=== PATIENT | female | born 1995 | race Caucasian/White ===

== ENCOUNTER 2016-08-09 02:29 | Outpatient (CLI) | payer BC ==
[2016-08-09 02:44] VITALS: BP 129/81; PULSE 87; RESP 18; TEMP 96.9
== END 2016-08-09 04:45 | disposition home or self-care (01) ==
LOC: FBPOP 02:29
PROVIDERS: ATTEND Obstetrics & Gynecology
DX: O47.1 False labor at or after 37 completed weeks of gestation (principal); Z3A.41 41 weeks gestation of pregnancy
CPT/HCPCS: 59025; 99213

== ENCOUNTER 2016-08-09 11:25 | Inpatient (IN) | payer BC, OTHER ==
[2016-08-09] MEDS ORDERED: METHYLERGONOVINE 0.2 MG/ML 1 ML AMP IM PRN (11:29)
[2016-08-09] MEDS ORDERED: LIDOCAINE 1% (PF) 10 MG/ML (30 ML SDV) SQ PRN (11:29)
[2016-08-09] MEDS ORDERED: CARBOPROST TROMETHAMINE 250 MCG/ML 1 ML AMP IM PRN (11:29)
[2016-08-09] MEDS ORDERED: OXYTOCIN 10 UNIT/ML 1 ML VIAL IM PRN (11:29)
[2016-08-09] MEDS ORDERED: TERBUTALINE 1 MG/ML VIAL SQ PRN (11:29)
[2016-08-09] MEDS ORDERED: OXYTOCIN 20 UNITS/1000 ML NS 1,000 ML IV SCH ×2 (11:30→20:30)
[2016-08-09 11:45] VITALS: BMI 30.8
[2016-08-09] MEDS ORDERED: PENICILLIN G POTASSIUM 5,000,000 UNIT in DEXTROSE 5% IN WATER 100 ML IV STA ×2 (11:49)
[2016-08-09] MEDS: LACTATED RINGERS 1,000 ML IV SCH ×4 (12:19→23:14)
[2016-08-09 12:26] LABS: Anisocytosis Slight; Basophils % (A) 0 %; CH 19.2; CHCM 28.4; Eosinophils % (A) 0 %; HCT 31.4 % (34.0-46.0); HGB 8.9 gm/dL (11.4-16.0); Hypochromasia Marked; Luc # (Auto) 0.19; Luc % (Auto) 2; Lymphocytes # (A) 1.6 k/uL (1.0-4.8); Lymphocytes % (A) 14 %; MCH 19.3 pg (25.0-35.0); MCHC 28.4 g/dL (31.0-37.0); Mean Platelet Volume 8.3; Microcytosis Marked; Monocytes # (A) 0.5 k/uL (0-1.0); Monocytes % (A) 4 %; Neutrophils % (A) 79 %; Poikilocytosis Slight; RBC 4.62 m/uL (3.80-5.40); RDW 17.9 % (11.5-15.5); WBC 11.4 k/uL (4.0-11.0); WBC (Perox) 11.23
[2016-08-09] MEDS ORDERED: fentaNYL (PF) 50 MCG/ML 5 ML AMP ONE ×2 (12:30→19:21)
[2016-08-09] MEDS ORDERED: BUPIVACAINE (PF) 0.25% 30 ML VIAL ONE ×2 (12:30→19:21)
[2016-08-09] MEDS ORDERED: SODIUM CHLORIDE 0.9% 100 ML BAG ONE ×2 (12:30→19:21)
[2016-08-09] MEDS ORDERED: BUPIVACAINE (PF) 0.25% 25 ML, fentaNYL (PF) 200 MCG in SODIUM CHLORIDE 0.9% 71 ML EPIDURAL ONE (13:00)
--- NOTE | 2016-08-09 13:04 | P.HPOB ---
History of Present Illness H&P Date: 08/09/16 Chief Complaint: 41-4/7 weeks, early labor The patient is a 20-year-old 1 para 0 admitted at 41-4/7 weeks as established by last menstrual period and confirmed by second trimester ultrasound. She is admitted in early active labor with all signs reassuring. She initially presented to triage last night with her cervix being found to be approximately 1+ centimeters dilated and was discharged home. She followed up again this morning in triage where she was found to be 3+ meters dilated and bobby regularly. Her has been essentially uncomplicated and she is group B strep positive. Obstetrical history: 1 para 0 with current statistics listed in history of present illness. EDC of 07/29/2016 was established by last menstrual period and confirmed by second trimester ultrasound. Laboratory workup demonstrates a blood type of O+ with a negative antibody screen. Rubella status is immune. The remainder of her laboratory workup was within normal limits. One hour Glucola was normal and group B strep status is positive. She did have fairly significant third trimester anemia for which she was being treated with iron sulfate. Gynecologic history: Unremarkable with no history of any infections to include STDs though she was treated for mycoplasma and Ureaplasma during this . Review of Systems Review of systems is confined to history of present illness. Past Medical History Past Medical History: No Reported History History of Any Multi-Drug Resistant Organisms: None Reported Past Surgical History: No Surgical Hx Reported Past Anesthesia/Blood Transfusion Reactions: No Reported Reaction Past Psychological History: No Psychological Hx Reported Smoking Status: Never smoker Past Drug Use History: None Reported - Past Family History Mother Family Medical History: No Reported History Medications and Allergies Home Medications Medication Instructions Recorded Confirmed Type Pnv,Calcium 72/Iron/Folic Acid 1 tab PO DAILY 08/09/16 08/09/16 History [ Plus Tablet] Allergies Allergy/AdvReac Type Severity Reaction Status Date / Time No Known Allergies Allergy Verified 08/09/16 02:35 Exam - Vital Signs Vital signs: Vital Signs Temp Pulse Resp BP 08/09/16 11:34 97.9 F 105 H 16 133/81 Intake and Output 08/08/16 08/09/16 08/09/16 22:59 06:59 14:59 Other: Weight 73.936 kg Patient Weight 08/10/16 06:59 Weight 73.936 kg In general, this is a well-developed, well-nourished white female in no acute distress as she has just had an epidural catheter placed. Her heart has a regular rhythm and rate without murmur though she is occasionally tachycardic. Her lungs are clear to auscultation bilaterally in all kraus. Her abdomen is gravid, nondistended, has normal active bowel sounds, is soft, nontender, and without any palpable masses aside from uterine fundus. Her extremities are without any cyanosis, clubbing, or edema and are nontender to palpation bilaterally. Digital cervical examination on straights her cervix to be 4 cm dilated, 80% effaced, the vertex in presentation at -2 station. Artificial rupture of membranes is carried out demonstrating clear fluid. Results Result Diagrams: 08/09/16 11:57 Abnormal Lab Results - Last 24 Hours (Table) 08/09/16 Range/Units 11:57 WBC 11.4 H (4.0-11.0) k/uL Hgb 8.9 L (11.4-16.0) gm/dL Hct 31.4 L (34.0-46.0) % MCV 68.0 L (80.0-100.0) fL MCH 19.3 L (25.0-35.0) pg MCHC 28.4 L (31.0-37.0) g/dL RDW 17.9 H (11.5-15.5) % Plt Count 136 L (150-450) k/uL Neutrophils # 9.0 H (1.3-7.7) k/uL Assessment and Plan (1) Group B streptococcal infection in Status: Acute (2) Post-dates Status: Acute (3) Active labor at term Status: Acute Plan: The patient has been admitted for active management of labor. Penicillin prophylaxis for group B strep has been started. She is bobby well on her own at this time and has undergone artificial rupture of membranes. She will have close maternal and surveillance and expectant management will be practiced. An epidural catheter has been placed for analgesia.
[2016-08-09] MEDS: PENICILLIN G POTASSIUM 2,500,000 UNIT in DEXTROSE 5% IN WATER 100 ML IV SCH ×4 (16:21→21:26)
[2016-08-09] MEDS ORDERED: CITRIC ACID-SODIUM CITRATE 15 ML CUP PO ONE (19:13)
[2016-08-09] MEDS ORDERED: ceFAZolin 2 GM in SODIUM CHLORIDE 0.9% 100 ML IVPB ONE (19:13)
[2016-08-09] MEDS ORDERED: SUCCINYLCHOLINE CHLORIDE 100 MG/5 ML SYR IV ONE (19:21)
[2016-08-09] MEDS ORDERED: ONDANSETRON 4 MG/2 ML VIAL ONE (19:21)
[2016-08-09] MEDS ORDERED: PROPOFOL 10 MG/ML 20 ML VIAL IV ONE (19:21)
[2016-08-09] MEDS ORDERED: OXYTOCIN 10 UNIT/ML 1 ML VIAL ONE (19:21)
[2016-08-09] MEDS ORDERED: KETOROLAC 30 MG/ML 1 ML VIAL ONE (19:21)
[2016-08-09] MEDS ORDERED: diphenhydrAMINE 50 MG CAP PO PRN (20:22)
[2016-08-09] MEDS ORDERED: ONDANSETRON 4 MG/2 ML VIAL IVP PRN (20:22)
[2016-08-09] MEDS ORDERED: diphenhydrAMINE 25 MG CAP PO PRN (20:22)
[2016-08-09] MEDS ORDERED: METOCLOPRAMIDE 5 MG/ML 2 ML VIAL IVP PRN (20:22)
[2016-08-09] MEDS ORDERED: LANOLIN CREAM 5 GM TUBE TOPICAL PRN (20:22)
[2016-08-09] MEDS ORDERED: Acetaminophen-Codeine 300-30mg TAB PO PRN (20:22)
[2016-08-09] MEDS ORDERED: NALOXONE 0.4 MG/ML 1 ML VIAL IV PRN (20:22)
[2016-08-09] MEDS ORDERED: ACETAMINOPHEN TAB 325 MG TAB PO PRN (20:22)
[2016-08-09] MEDS ORDERED: ZOLPIDEM 5 MG TAB PO PRN (20:22)
[2016-08-09] MEDS ORDERED: diphenhydrAMINE 50 MG/ML 1 ML VIAL IVP PRN ×2 (20:22)
--- NOTE | 2016-08-09 20:32 | P.OP ---
Date of Procedure: 08/09/16 Preoperative Diagnosis: #1. 41-4/7 weeks intrauterine , labor #2. Group B strep colonization #3. Arrest of dilation and descent Postoperative Diagnosis: Same plus #4. Right occiput posterior Procedure(s) Performed: #1. Primary low-transverse section Implants: Anesthesia: KAMAR Surgeon: Laureano Alarcon Supervisor Reclamation #1: Ralph Summers Estimated Blood Loss (ml): 600 IV fluids (ml): 1,400 Urine output (ml): 400 Pathology: other (Placenta) Condition: stable Disposition: floor Indications for Procedure: Operative Findings: Preoperatively, the patient had progressed to approximately 8 cm but began to have no relief from her epidural catheter despite boluses. Over the course of the and our to her cervix began to swell and actually regressed to 7 cm of dilation with the head still at a high station. She additionally was having some variable decelerations, occasionally prolonged. Given these findings, decision was made to proceed to the operating room. In the operating room she had her epidural removed and a spinal placed which failed to develop adequate anesthesia. As results the patient received general endotracheal anesthesia. She was delivered of a viable 7 lbs. 14 oz. baby girl with Apgars of 9 at 1 minute and 9 at 5 minutes delivered in the right occiput posterior position. The placenta was delivered manually, intact, and grossly normal with a grossly normal three-vessel cord. The uterus, tubes, and ovaries were entirely normal to inspection. Description of Procedure: The patient was prepped and draped in usual fashion after spinal anesthesia was administered by the anesthesiologist. After waiting approximately 5-10 minutes for levels to develop, it was apparent that the spinal medication had not taken effect. As result, general endotracheal anesthesia was placed. Once the endotracheal tube was in place, a Pfannenstiel incision was made and extended into the abdominal cavity without difficulty. The bladder peritoneum was distal to the site of the incision. As result, a 2 cm incision was made in the transverse plane of the lower uterine segment to enter the uterus at which time further clear fluid was noted. The incision was extended in both directions using the bandage scissors. The head was encountered in the pelvis and lifted up and through the incision in the right occiput posterior position. The nose and mouth were thoroughly suctioned and a nuchal cord was reduced. The remainder of the infant was delivered onto the field where the cord was doubly clamped, cut, and the infant passed for resuscitative measures with weight and Apgars as noted above. A segment of cord was doubly clamped, cut, and set aside should cord gases become necessary. The placenta was delivered manually and intact as noted above. The uterus was exteriorized and the interior cavity swept of any remaining placental or membranous fragments. The margins of the incision were grasped with Caldear clamps and the incision was closed in 2 layers. The first layer was a running locking stitch of 0 chromic catgut followed by a running imbricating stitch of 0 chromic catgut. Any small points of bleeding were made hemostatic with the Bovie. There was some ongoing bleeding near the right angle of the incision was made hemostatic with 2 [id number] stitches of 0 chromic catgut. The posterior cul-de-sac was suctioned using a guard and the uterine and ovarian findings were normal as noted above. The uterus was replaced within the abdominal cavity and the gutters were swept of any remaining blood, fluid, or clot. The incision was reexamined at which time the area at the right angle of the incision was noted and made hemostatic with the [id number] stitches. Any further small points of bleeding were made hemostatic with the Bovie. Once hemostasis was adequate, the parietal peritoneum was loosely reapproximated and layer of muscles examined and found to be hemostatic. The fascia was closed with 2 running stitches of 0 Vicryl proceeding from lateral margins to the midpoint. The subcutaneous tissues were irrigated, made hemostatic with the Bovie, and reapproximated with a running stitch of 30 plain catgut. The skin was reapproximated with a running subcuticular stitch of 4-0 Vicryl followed by half -inch Steri-Strips placed with Mastisol. Estimated blood loss for the case is approximately 600 mL. There were no complications. All sponge, instrument, and needle counts were correct. The patient tolerated the procedure well and proceeded to the recovery room in stable condition. Both mother and are resting comfortably in recovery.
[2016-08-10] MEDS: KETOROLAC 30 MG/ML 1 ML VIAL IVP PRN ×3 (02:34→18:07)
--- NOTE | 2016-08-10 05:56 | P.PNOBGPC ---
Subjective - Subjective Patient reports: Reports appetite normal, Reports voiding normally, Reports pain well controlled, Reports ambulating normally : doing well Objective - Vital Signs Latest vital signs: Vital Signs Temp Pulse Resp BP Pulse Ox 08/10/16 04:00 98.8 F 108 H 18 114/68 99 08/10/16 00:00 99.0 F 109 H 18 120/61 98 08/09/16 22:35 98.1 F 119 H 16 107/55 99 08/09/16 22:05 97.7 F 109 H 16 135/59 99 08/09/16 21:35 126 H 16 119/70 100 08/09/16 21:20 126 H 16 128/69 98 08/09/16 21:05 97.7 F 122 H 16 128/70 99 08/09/16 20:50 97.7 F 118 H 16 115/59 100 08/09/16 20:35 96.7 F L 129 H 16 118/73 99 08/09/16 11:34 97.9 F 105 H 16 133/81 Intake and Output 08/09/16 08/09/16 08/10/16 14:59 22:59 06:59 Intake Total 2000 2600 Output Total 1800 1800 Balance 2000 800 -1800 Intake: IV 2000 2000 Lactated Ringers 1,000 ml 2000 @ 125 mls/hr IV .Q8H [facility] Rx#:[id number] Oral 600 Output: Urine 600 1800 Uretheral (Ashley) 900 Estimated Blood Loss 1200 Other: Weight 73.936 kg Patient Weight 08/10/16 06:59 Weight 73.936 kg - Exam Lungs: bilateral: normal Chest: Normal S1, Normal S2 Extremities: Present: normal Abdomen: Present: normal appearance, soft. Absent: distention, tenderness Incision: Present: normal, dry, intact Uterus: Present: normal, firm (The uterine fundus as tonic and nontender just below the umbilicus.) - Labs Labs: Abnormal Lab Results - Last 24 Hours (Table) 08/09/16 Range/Units 11:57 WBC 11.4 H (4.0-11.0) k/uL Hgb 8.9 L (11.4-16.0) gm/dL Hct 31.4 L (34.0-46.0) % MCV 68.0 L (80.0-100.0) fL MCH 19.3 L (25.0-35.0) pg MCHC 28.4 L (31.0-37.0) g/dL RDW 17.9 H (11.5-15.5) % Plt Count 136 L (150-450) k/uL Neutrophils # 9.0 H (1.3-7.7) k/uL Assessment and Plan (1) Group B streptococcal infection in Current Visit: Yes Status: Acute Code(s): O98.819 - OTH MATERNAL INFEC/ PARASTC DISEASES COMP PREG, UNSP TRI; B95.1 - STREPTOCOCCUS, GROUP B, CAUSING DISEASES CLASSD ELSR SNOMED Code(s): 954638013 (2) Post-dates Current Visit: Yes Status: Acute Code(s): O48.0 - POST-TERM SNOMED Code(s): 61991889 (3) Active labor at term Current Visit: Yes Status: Acute Code(s): ZFI4905 - SNOMED Code(s): 34500118 (4) S/P section Narrative/Plan: Continue routine postoperative care. Her diet will be advanced this morning. CBC at this time is pending. I have encouraged her to ambulate in the halls at least 4 times daily. I would anticipate possible discharge home tomorrow pending no complications. Current Visit: Yes Status: Acute Code(s): Z98.891 - HISTORY OF UTERINE SCAR FROM PREVIOUS SURGERY SNOMED Code(s): 229170786
[2016-08-10 08:12] LABS: Anisocytosis Slight; Basophils % (A) 0 %; CHCM 27.9; Eosinophils % (A) 0 %; HDW 3.76; Hypochromasia Marked; Luc # (Auto) 0.13; Luc % (Auto) 1; Lymphocytes # (A) 0.8 k/uL (1.0-4.8); Lymphocytes % (A) 8 %; MCH 19.3 pg (25.0-35.0); MCHC 28.2 g/dL (31.0-37.0); MCV 68.5 fL (80.0-100.0); Mean Platelet Volume 8.4; Microcytosis Marked; Monocytes # (A) 0.4 k/uL (0-1.0); Monocytes % (A) 4 %; Neutrophils # (A) 8.8 k/uL (1.3-7.7); Neutrophils % (A) 87 %; Poikilocytosis Slight; RBC 3.22 m/uL (3.80-5.40); WBC 10.1 k/uL (4.0-11.0); WBC (Perox) 10.04
[2016-08-10 08:18] LABS: HGB 6.2 gm/dL (11.4-16.0)
[2016-08-10] MEDS: LACTATED RINGERS 1,000 ML IV SCH ×3 (09:21→21:10)
[2016-08-10] MEDS: SENNOSIDES-DOCUSATE SODIUM 1 EACH TAB PO SCH ×2 (10:29→19:48)
--- NOTE | 2016-08-10 12:28 | P.PN ---
Progress Note - Text 0700 Anesthesia POD 1. Patient is status post section under under spinal anesthesia converted to general endotracheal anesthesia due to inadequate block with intra-thecal preservative free morphine 300 g. Moderate pruritus, good post-op analgesia, and ache or other complication. The patient had an epidural catheter in place which had been functioning well earlier in the day but was equivocal at the time that the decision was made to take her to the operating room. For this reason it was decided to remove the catheter and give the patient a spinal anesthetic. The spinal anesthetic was administered by the RADIO HOST with what appeared to be an appropriate dose of Marcaine 0.75% with preservative free morphine 300 g. The patient continued to feel her contractions was able to bend her knees and wiggle her toes and exhibited virtually no drop in blood pressure. For this reason it was decided to proceed with a general endotracheal anesthetic for the section which went smoothly without incident. It's unclear why the patient didn't develop a adequate spinal anesthetic in light of the fact that she experienced significant pruritus, only required 1 dose of Toradol 30 mg postoperatively and was still quite comfortable during rounds this morning. This would seem to indicate that she received a full dose of preservative-free morphine intrathecally which would have to include the full dose of Marcaine.
[2016-08-11] MEDS: KETOROLAC 30 MG/ML 1 ML VIAL IVP PRN (02:28)
[2016-08-11 06:08] LABS: Anisocytosis Slight; Basophils % (A) 0 %; CH 18.9; CHCM 27.1; Eosinophils # (A) 0.1 k/uL (0-0.7); Eosinophils % (A) 1 %; HCT 22.2 % (34.0-46.0); HDW 3.66; Hypochromasia Marked; Luc # (Auto) 0.13; Luc % (Auto) 1; Lymphocytes % (A) 10 %; MCH 19.1 pg (25.0-35.0); MCHC 27.2 g/dL (31.0-37.0); MCV 70.3 fL (80.0-100.0); Mean Platelet Volume 8.2; Microcytosis Marked; Monocytes # (A) 0.4 k/uL (0-1.0); Monocytes % (A) 4 %; Neutrophils # (A) 8.4 k/uL (1.3-7.7); Neutrophils % (A) 84 %; Poikilocytosis Slight; RBC 3.16 m/uL (3.80-5.40); RDW 18.1 % (11.5-15.5); WBC (Perox) 10.43
[2016-08-11 06:11] LABS: HGB 6.1 gm/dL (11.4-16.0)
[2016-08-11] MEDS: SENNOSIDES-DOCUSATE SODIUM 1 EACH TAB PO SCH ×2 (08:12→22:29)
[2016-08-11] MEDS: Acetaminophen-Codeine 300-30mg TAB PO PRN ×4 (08:12→22:39)
--- NOTE | 2016-08-11 08:42 | P.PNOBGPC ---
Subjective - Subjective Interval history: The patient denies any signs or symptoms of orthostasis. She has no issue when up and ambulating without dizziness or any other concerns as regards her degree of anemia. Vaginal bleeding is minimal at this point. Patient reports: Reports appetite normal, Reports voiding normally, Reports pain well controlled, Reports ambulating normally [place]: doing well Objective - Vital Signs Latest vital signs: Vital Signs Temp Pulse Resp BP Pulse Ox 08/11/16 00:00 98.7 F 123 H 18 112/68 08/10/16 20:00 98.2 F 102 H 18 109/52 08/10/16 16:00 98.1 F 105 H 18 112/66 97 08/10/16 12:00 98.2 F 118 H 18 127/57 98 Intake and Output 08/10/16 08/11/16 08/11/16 22:59 06:59 14:59 Intake Total 500 Balance 500 Intake: Oral 500 Other: # Voids 2 1 - Exam Extremities: Present: normal Abdomen: Present: normal appearance, soft. Absent: distention, tenderness Incision: Present: normal, dry, intact Uterus: Present: normal, firm (The uterine fundus systolic and nontender below the umbilicus) - Labs Labs: Abnormal Lab Results - Last 24 Hours (Table) 08/11/16 Range/Units 04:51 RBC 3.16 L (3.80-5.40) m/uL Hgb 6.1 L* (11.4-16.0) gm/dL Hct 22.2 L (34.0-46.0) % MCV 70.3 L (80.0-100.0) fL MCH 19.1 L (25.0-35.0) pg MCHC 27.2 L (31.0-37.0) g/dL RDW 18.1 H (11.5-15.5) % Plt Count 132 L (150-450) k/uL Neutrophils # 8.4 H (1.3-7.7) k/uL Assessment and Plan (1) Group B streptococcal infection in Current Visit: Yes Status: Acute Code(s): O98.819 - OTH MATERNAL INFEC/ PARASTC DISEASES COMP PREG, UNSP TRI; B95.1 - STREPTOCOCCUS, GROUP B, [facility] Code(s): 830387391 (2) Post-dates Current Visit: Yes Status: Acute Code(s): O48.0 - POST-TERM SNOMED Code(s): 84488979 (3) Active labor at term Current Visit: Yes Status: Acute Code(s): ZUX9080 - SNOMED Code(s): 31422029 (4) S/P section Narrative/Plan: There are no signs or symptoms of orthostasis. As result I will not opt for transfusion at this time and instead have her start aggressive iron supplementation as an outpatient. She has requested one more day in the hospital to which I have agreed. I strongly encouraged her to ambulate in the halls routinely. We will continue to monitor vital signs closely. I anticipate discharge home tomorrow. Current Visit: Yes Status: Acute Code(s): Z98.891 - HISTORY OF UTERINE SCAR FROM PREVIOUS SURGERY SNOMED Code(s): 962488827
[2016-08-11] MEDS: IBUPROFEN 600 MG TAB PO PRN (11:24)
[2016-08-11] MEDS: SIMETHICONE 80 MG CHEWABLE PO PRN (19:01)
[2016-08-12] MEDS: Acetaminophen-Codeine 300-30mg TAB PO PRN ×4 (03:30→19:29)
[2016-08-12] MEDS: SIMETHICONE 80 MG CHEWABLE PO PRN ×3 (03:33→22:13)
[2016-08-12] MEDS: SENNOSIDES-DOCUSATE SODIUM 1 EACH TAB PO SCH ×2 (08:06→19:29)
--- NOTE | 2016-08-12 08:34 | P.PNOBGPC ---
Subjective - Subjective Interval history: The patient is requesting one more day in the hospital. She does report 1 episode of dizziness when up this morning. She additionally reported that she had significant nausea while in the shower yesterday. She is having some difficulty passing flatus at this time as well. Patient reports: Reports appetite normal, Reports voiding normally, Reports pain well controlled, Reports ambulating normally : doing well Objective - Vital Signs Latest vital signs: Vital Signs Temp Pulse Resp BP Pulse Ox 08/11/16 22:29 98.1 F 99 15 109/75 08/11/16 16:00 98.9 F 111 H 16 135/69 96 08/11/16 08:39 97.9 F 106 H 18 124/75 Intake and Output 08/11/16 08/12/16 08/12/16 22:59 06:59 14:59 Output Total 100 Balance -100 Output: Emesis 100 - Exam Extremities: Present: normal Abdomen: Present: normal appearance, soft. Absent: distention, tenderness Incision: Present: normal, dry, intact Uterus: Present: normal, firm (The uterine fundus as tonic and nontender below the umbilicus.) Assessment and Plan (1) Group B streptococcal infection in Current Visit: Yes Status: Acute Code(s): O98.819 - OTH MATERNAL INFEC/ PARASTC DISEASES COMP PREG, UNSP TRI; B95.1 - STREPTOCOCCUS, GROUP B, CAUSING DISEASES CLASSD ELSR SNOMED Code(s): 329983654 (2) Post-dates Current Visit: Yes Status: Acute Code(s): O48.0 - POST-TERM SNOMED Code(s): 55711447 (3) Active labor at term Current Visit: Yes Status: Acute Code(s): GUG2175 - SNOMED Code(s): 36788973 (4) S/P section Narrative/Plan: I will recheck a CBC this morning if it is any lower than previously documented , she will likely have 2 units of packed red blood cells. I have discussed with her that she will need to be discharged tomorrow unless and unforeseen complication is noted. I have strongly encouraged her to ambulate in the halls routinely. She is otherwise tolerating regular diet and performing all activities of daily living. Current Visit: Yes Status: Acute Code(s): Z98.891 - HISTORY OF UTERINE SCAR FROM PREVIOUS SURGERY SNOMED Code(s): 486392161
[2016-08-12 09:23] LABS: Anisocytosis Slight; CH 18.8; CHCM 26.9; HCT 22.8 % (34.0-46.0); HDW 3.56; Hypochromasia Marked; MCH 20.2 pg (25.0-35.0); MCHC 28.7 g/dL (31.0-37.0); MCV 70.4 fL (80.0-100.0); Mean Platelet Volume 9.7; Microcytosis Marked; Poikilocytosis Slight; RBC 3.24 m/uL (3.80-5.40); RDW 17.6 % (11.5-15.5); WBC 8.7 k/uL (4.0-11.0)
[2016-08-12 09:45] LABS: HGB 6.5 gm/dL (11.4-16.0)
[2016-08-12] MEDS: IBUPROFEN 600 MG TAB PO PRN (22:00)
[2016-08-13] MEDS: Acetaminophen-Codeine 300-30mg TAB PO PRN ×2 (00:02→05:44)
[2016-08-13 00:08] VITALS: RESP 16
[2016-08-13] MEDS: IBUPROFEN 600 MG TAB PO PRN (07:40)
[2016-08-13] MEDS: SENNOSIDES-DOCUSATE SODIUM 1 EACH TAB PO SCH (07:41)
[2016-08-13 07:46] VITALS: BP 114/58; PULSE 102; TEMP 98.5
--- NOTE | 2016-08-13 11:06 | P.DS ---
Providers Date of admission: 08/09/16 11:25 Expected date of discharge: 08/13/16 Attending physician: Laureano Alarcon Primary care physician: Stated None - Discharge Diagnosis(es) (1) Group B streptococcal infection in Current Visit: Yes Status: Acute (2) Post-dates Current Visit: Yes Status: Acute (3) Active labor at term Current Visit: Yes Status: Acute (4) S/P section Current Visit: Yes Status: Acute Hospital Course: The patient is a 20-year-old 1 para 0 admitted at 41-4/7 weeks by good dating parameters. She is admitted in early active labor with all signs reassuring. Her has been uncomplicated and group B strep status is positive. As result, she had antibiotic prophylaxis started and an epidural catheter was placed for analgesia. She began to make some progress and underwent artificial rupture of membranes of clear fluid. She had Pitocin augmentation started. She made progress to approximately 8 cm and then arrested further dilation. She actually began has some cervical swelling and regressed to 7 cm at which time the decision was made to proceed with section. She was taken the operating room for primary low-transverse section at which time she was delivered of a viable 7 lbs. 14 oz. baby girl with Apgars of 9 at 1 minute and 9 at 5 minutes. Her postoperative course was unremarkable vital signs remaining stable and her temperature was afebrile throughout. She opted to remain in the hospital until postoperative day #4 at which time she was discharged home to follow-up in the office in 2 weeks for an incision check and 6 weeks routinely. She was significantly anemic both prior to surgery and then, subsequently after her surgery. Her hemoglobin nadired at 6.1 and, at the time of discharge, was 6.5. Despite her low count, she remained asymptomatic throughout her stay and transfusion was not entertained. She was discharged home to follow-up in the office as noted above. Discharge instructions included calling for any significantly increased bleeding or foul- smelling lochia, significantly increased fever abdominal pain, perineal complaints, breast complaints, incisional complaints, or anything else that concerned her. She was additionally instructed to have nothing in the vagina for at least 6 weeks time to include intercourse and to abstain from any heavy lifting over the same period of time cira [place] instructed to do no driving until off of all pain medications or 2 weeks' time, whichever came first. She understood her instructions and agrees to follow up as noted above. Discharge medications included a prescription for Tylenol 3, 1-2 by mouth every 6 hours when necessary pain, #30 dispensed with no refills. She is additionally to continue iron sulfate 325 mg twice daily for at least 1 month after discharge. She was otherwise to use [id number] analgesic pain medications. She was to continue using her vitamins as she has opted to breast-feed. Maternal blood type is O+ and rubella status is immune. Discharge hemoglobin and hematocrit were 6.5 and 22.8 respectively. Procedures: #1. Antibody prophylaxis #2. Artificial rupture of membranes #3. Epidural analgesia #4. Pitocin augmentation #5. Primary low-transverse section Patient Condition at Discharge: Stable Plan - Discharge Summary New Discharge Prescriptions: New Acetaminophen-Codeine 300-30mg [Tylenol #3] 2 tab PO Q6H PRN #30 tablet PRN Reason: Pain No Action Pnv,Calcium 72/Iron/Folic Acid [ Plus Tablet] 1 tab PO DAILY Discharge Medication List Pnv,Calcium 72/Iron/Folic Acid [ Plus Tablet] 1 tab PO DAILY 08/09/16 [ History] Acetaminophen-Codeine 300-30mg [Tylenol #3] 2 tab PO Q6H PRN #30 tablet [Rx] Follow up Appointment(s)/Referral(s): Rocio Diaz MD [STAFF PHYSICIAN] - 2 Weeks Discharge Disposition: HOME SELF-CARE
== END 2016-08-13 14:30 | disposition home or self-care (01) | DRG 766 ==
LOC: 4FBP 11:25
PROVIDERS: ADMIT Obstetrics & Gynecology; ATTEND Obstetrics & Gynecology
PROC: 00HU33Z Insertion of Infusion Device into Spinal Canal, Percutaneous Approach (ICD-10-PCS; principal; 2016-08-09 19:40)
PROC: 10D00Z1 Extraction of Products of Conception, Low, Open Approach (ICD-10-PCS; principal; 2016-08-09 19:40)
PROC: 3E0R3CZ (ICD-10-PCS; principal; 2016-08-09 19:40)
PROC: 10907ZC Drainage of Amniotic Fluid, Therapeutic from Products of Conception, Via Natural or Artificial Opening (ICD-10-PCS; principal; 2016-08-09 19:40)
DX: O62.1 Secondary uterine inertia (principal); O48.0 Post-term pregnancy; O76 Abnormality in fetal heart rate and rhythm complicating labor and delivery; O32.4XX0 Maternal care for high head at term, not applicable or unspecified; O99.824 Streptococcus B carrier state complicating childbirth; Z37.0 Single live birth; L29.9 Pruritus, unspecified; Z3A.41 41 weeks gestation of pregnancy; O99.02 Anemia complicating childbirth
CPT/HCPCS: 85025; 85027; 88307